=== PATIENT | female | born 1980 | race Caucasian/White ===

== ENCOUNTER 2017-02-08 21:00 | Emergency (ER) | payer BC ==
[2017-02-08] MEDS ORDERED: Albuterol/Ipratropium 3.0-0.5 MG/3 ML Neb Soln NEB ONE (21:16)
--- NOTE | 2017-02-08 21:19 | EDM.PDOC ---
ED HPI GENERAL MEDICAL PROBLEM - General Chief Complaint: Respiratory Problem Stated Complaint: COUGH/WEAKNESS/BACK/CHEST PAIN Time Seen by Provider: 02/08/17 21:10 - History of Present Illness INITIAL COMMENTS - FREE TEXT/NARRATIVE: HISTORY AND PHYSICAL: History of present illness: The patient is a 36-year-old female with no history of pulmonary issues and no smoking history who presents with a 2 day history of cough productive of phlegm and initially ache in the upper bronchioles but now she is having pain in her upper back bilaterally. She has not had any sore throat runny nose ear pain vomiting stomach pain or diarrhea. Patient says that the phlegm is junky but not bloody. Patient has been eating and drinking normally and has not had a fever with this. Patient says she was exposed to a child who was successfully diagnosed with pneumonia and she is concerned about that. 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 Past medical history: As per history of present illness and as reviewed below otherwise noncontributory. Surgical history: As per history of present illness and as reviewed below otherwise noncontributory. Social history: No reported history of drug or alcohol abuse. Family history: As per history of present illness and as reviewed below otherwise noncontributory. Physical exam: Gen.: Well-developed well-nourished overweight female who is speaking clearly and easily in the ED. Vital signs of an reviewed by me. HEENT: Atraumatic, normocephalic, pupils reactive, negative for conjunctival pallor or scleral icterus, mucous membranes moist, throat clear, neck supple, nontender, trachea midline. Cervical adenopathy or nuchal rigidity Lungs: Clear to auscultation, breath sounds equal bilaterally, chest nontender. No work of breathing stridor or wheezing Heart: S1S2, regular rate and rhythm no overt murmurs Abdomen: Soft, nondistended, nontender. NABS Negative for costovertebral tenderness. Pelvis: Deferred Genitourinary: Deferred. Rectal: Deferred. Extremities: Atraumatic, negative for cords or calf pain. Neurovascular unremarkable. No leg asymmetry Neuro: Awake, alert, oriented. Cranial nerves II through XII unremarkable. Cerebellum unremarkable. Motor and sensory unremarkable throughout. Exam nonfocal. Diagnostics: Influenza chest x-ray Therapeutics: Duo neb prednisone, spacer teaching Patient tells me that the ache in her upper back bilaterally is gone after the neb and she feels like she is moving the mucous better. Discussed with her using a spacer with an inhaler at home as well as prednisone for home. 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 Advised her to push hydration use Tylenol and Motrin or pain and fevers and to follow-up in the clinic Impression: Bronchitis Definitive disposition and diagnosis as appropriate pending reevaluation and review of above. 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 ED EXAM, GENERAL - Physical Exam Exam: See Below (See dictation) Course - Vital Signs Last Recorded V/S: Last Vital Signs Temp 36.6 C 02/08/17 21:12 Pulse 88 02/08/17 21:12 Resp 16 02/08/17 21:12 BP 140/89 02/08/17 21:12 Pulse Ox 99 02/08/17 21:12 - Orders/Labs/Meds Orders: Active Orders 24 hr Category Date Time Status Communication Order [RC] STAT Care 02/08/17 22:40 Ordered RT Aerosol Therapy [RC] ASDIRECTED Care 02/08/17 21:16 Active Chest 2V [CR] Stat Exams 02/08/17 21:16 Taken Meds: Medications Discontinued Medications Generic Name Dose Route Start Last Admin Trade Name Freq PRN Reason Stop Dose Admin Albuterol/Ipratropium 3 ml 02/08/17 21:16 02/08/17 21:25 Duoneb 3.0-0.5 Mg/3 Ml NEB 02/08/17 21:17 3 ml ONETIME ONE Administration Prednisone 20 mg 02/08/17 22:41 Prednisone PO 02/08/17 22:42 ONETIME ONE Departure - Departure Time of Disposition: 22:43 Disposition: Home, Self-Care 01 Condition: Good Clinical Impression: Bronchitis - Discharge Information Referrals: Marquez Polk MD [Primary Care Provider] - Forms: ED Department Discharge Additional Instructions: The following information is given to patients seen in the emergency department who are being discharged to home. This information is to outline your options for follow-up care. We provide all patients seen in our emergency department with a follow-up referral. The need for follow-up, as well as the timing and circumstances, are variable depending upon the specifics of your emergency department visit. If you don't have a primary care physician on staff, we will provide you with a referral. We always advise you to contact your personal physician following an emergency department visit to inform them of the circumstance of the visit and for follow-up with them and/or the need for any referrals to a consulting specialist. The emergency department will also refer you to a specialist when appropriate. This referral assures that you have the opportunity for followup care with a specialist. All of these measure are taken in an effort to provide you with optimal care, which includes your followup. Under all circumstances we always encourage you to contact your private physician who remains a resource for coordinating your care. When calling for followup care, please make the office aware that this follow-up is from your recent emergency room visit. If for any reason you are refused follow-up, please contact the [facility] emergency department at and ask to speak to the emergency department charge nurse. [facility] Primary care- Internal Medicine and Family [address] [address] Please call and schedule follow-up clinic appointment as we discussed for reevaluation and further care and return to ER as needed and as discussed. Take indications as prescribed and used her inhaler as indicated--every 6 hours for the next 2 days and then every 6 hours as needed. - My Orders Last 24 Hours: My Active Orders 02/08/17 21:16 RT Aerosol Therapy [RC] ASDIRECTED Chest 2V [CR] Stat 02/08/17 22:40 Communication Order [RC] STAT - Assessment/Plan Last 24 Hours: My Active Orders 02/08/17 21:16 RT Aerosol Therapy [RC] ASDIRECTED Chest 2V [CR] Stat 02/08/17 22:40 Communication Order [RC] STAT
[2017-02-08] MEDS ORDERED: predniSONE 20 MG Tab PO ONE (22:41)
[2017-02-08 22:52] VITALS: BP 112/71
--- NOTE | 2017-02-09 10:00 | CR ---
EXAM DATE: 02/08/17 PATIENT'S AGE: 36 Patient: YVETTE THOMPSON Facility: [place], [place] Site . Site : 1980 Study: XRay Chest [id number]/12/2017 9:58:29 PM Ordering Physician: Kentrell Warner Final Report: INDICATION: cough, weakness, chest pain TECHNIQUE: Chest radiograph 2 views COMPARISON: 03/10/09 FINDINGS: Cardiovascular and mediastinum: The cardiac silhouette is normal in appearance and size. Mediastinum is within normal limits. Lungs and pleural spaces: Both lungs are unremarkable in appearance. No sign of pleural effusion. No pneumothorax is seen. Bones and soft tissues: No significant findings. IMPRESSION: 1. No acute cardiopulmonary disease seen. Dictated by: Cristóbal Saunders MD @ 02/08/2017 22:35:51 (Electronic Signature) Report Signed by Proxy. [facility]
== END 2017-02-08 23:06 | disposition home or self-care (01) ==
LOC: MW.ED 21:00
DX: J40 Bronchitis, not specified as acute or chronic (principal); E03.9 Hypothyroidism, unspecified
CPT/HCPCS: 71020; 87804; 94640; 99284; A9270; 99283

== ENCOUNTER 2018-08-07 21:30 | Emergency (ER) | payer BC ==
--- NOTE | 2018-08-07 21:43 | EDM.PDOC ---
ED HPI GENERAL MEDICAL PROBLEM - General Chief Complaint: Lower Extremity Injury/Pain Stated Complaint: SWOLLEN ANKLE Time Seen by Provider: 08/07/18 21:32 Source of Information: Reports: Patient History Limitations: Reports: No Limitations - History of Present Illness INITIAL COMMENTS - FREE TEXT/NARRATIVE: HISTORY AND PHYSICAL: History of present illness: Patient denies fever, chills, chest pain, shortness of breath, or cough. Denies headache, neck stiff ness, change in vision, syncope, or near syncope. Denies nausea, vomiting, abdominal pain, diarrhea, constipation, or dysuria. Has not noted any blood in urine or stool. Patient has been eating and drinking appropriately. Review of systems: As per history of present illness and below otherwise all systems reviewed and negative. Past medical history: As per history of present illness and as reviewed below otherwise noncontributory. Surgical history: As per history of present illness and as reviewed below otherwise noncontributory. Social history: See social history for further information Family history: As per history of present illness and as reviewed below otherwise noncontributory. Physical exam: General: Patient is alert, oriented, and in no acute distress. Patient sitting comfortably on exam table. HEENT: Atraumatic, normocephalic, pupils equal and reactive bilaterally, negative for conjunctival pallor or scleral icterus, mucous membranes moist, TMs normal bilaterally, throat clear, neck supple, nontender, trachea midline. No drooling or trismus noted. No meningeal signs. No hot potato voice noted. Lungs: Clear to auscultation, breath sounds equal bilaterally, chest nontender. Heart: S1S2, regular rate and rhythm without overt murmur Abdomen: Soft, nondistended, nontender. Negative for masses or hepatosplenomegaly. Negative for costovertebral tenderness. Pelvis: Stable nontender. Genitourinary: Deferred. Rectal: Deferred. Skin: Intact, warm, dry. No lesions or rashes noted. Extremities: Atraumatic, negative for cords or calf pain. Neurovascular unremarkable. Neuro: Awake, alert, oriented. Cranial nerves II through XII unremarkable. Cerebellum unremarkable. Motor and sensory unremarkable throughout. Exam nonfocal. Notes: Supportive care measures were reviewed and discussed. Voices understanding and is agreeable to plan of care. Denies any further questions or concerns at this time. Diagnostics: Therapeutics: Prescription: Impression: Plan: Definitive disposition and diagnosis as appropriate pending reevaluation and review of above. 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, Musculoskeletal History: Reports: Fracture Neurological History: Reports: None Psychiatric History: Reports: None Endocrine/Metabolic History: Reports: Hypothyroidism Hematologic History: Reports: None Immunologic History: Reports: None Oncologic (Cancer) History: Reports: None Dermatologic History: Reports: None - Infectious Disease History Infectious Disease History: Reports: Chicken Pox - Past Surgical History Head Surgeries/Procedures: Reports: None HEENT Surgical History: Reports: Oral Surgery Cardiovascular Surgical History: Reports: None Respiratory Surgical History: Reports: None GI Surgical History: Reports: None Female Surgical History: Reports: None Endocrine Surgical History: Reports: None Neurological Surgical History: Reports: None Musculoskeletal Surgical History: Reports: None Oncologic Surgical History: Reports: None Dermatological Surgical History: Reports: None Social & Family History - Family History Family Medical History: Noncontributory - Caffeine Use Caffeine Use: Reports: Coffee Departure - Discharge Information
--- NOTE | 2018-08-07 22:02 | EDM.PDOC ---
<Roberta Justin - Last Filed: 08/07/18 21:57> ED HPI GENERAL MEDICAL PROBLEM - General Chief Complaint: Lower Extremity Injury/Pain Stated Complaint: SWOLLEN ANKLE Time Seen by Provider: 08/07/18 21:32 Source of Information: Reports: Patient History Limitations: Reports: No Limitations - History of Present Illness INITIAL COMMENTS - FREE TEXT/NARRATIVE: HISTORY AND PHYSICAL: History of present illness: Patient is a 37-year-old female who presents to the ED today with concern of right ankle pain 1 day. Patient states that she had taken her dog for a walk around the park. Patient states that last night, a, hour or so after the walk, she had taken her shoes off and noticed her right ankle was swollen. Patient states that since then has been a little bit more painful to use that foot. Patient denies any prior injury to the area. Patient denies any direct injury to the area. Patient denies fever, chills, chest pain, shortness of breath, or cough. Denies headache, neck stiff ness, change in vision, syncope, or near syncope. Denies nausea, vomiting, abdominal pain, diarrhea, constipation, or dysuria. Has not noted any blood in urine or stool. Patient has been eating and drinking appropriately. Patient denies any health history. Review of systems: As per history of present illness and below otherwise all systems reviewed and negative. Past medical history: As per history of present illness and as reviewed below otherwise noncontributory. Surgical history: As per history of present illness and as reviewed below otherwise noncontributory. Social history: See social history for further information Family history: As per history of present illness and as reviewed below otherwise noncontributory. Physical exam: General: Patient is alert, oriented, and in no acute distress. Patient sitting comfortably on exam table. HEENT: Atraumatic, normocephalic, pupils equal and reactive bilaterally, negative for conjunctival pallor or scleral icterus, mucous membranes moist, TMs normal bilaterally, throat clear, neck supple, nontender, trachea midline. No drooling or trismus noted. No meningeal signs. No hot potato voice noted. Lungs: Clear to auscultation, breath sounds equal bilaterally, chest nontender. Heart: S1S2, regular rate and rhythm without overt murmur Abdomen: Soft, nondistended, nontender. Negative for masses or hepatosplenomegaly. Negative for costovertebral tenderness. Pelvis: Stable nontender. Genitourinary: Deferred. Rectal: Deferred. Skin: Intact, warm, dry. No lesions or rashes noted. Extremities: There is some mild swelling around the right lateral malleolus of the ankle. Patient does have some mild pain with range of motion of the right ankle, however, full range of motion and strength intact. Dorsalis pedis and posterior tibial pulses intact via doppler. Otherwise, negative for cords or calf pain. Neurovascular unremarkable. Neuro: Awake, alert, oriented. Cranial nerves II through XII unremarkable. Cerebellum unremarkable. Motor and sensory unremarkable throughout. Exam nonfocal. Notes: On exam, patient does have some swelling around the lateral malleolus. Will do imaging today. Dr. Pfeiffer has assumed care of patient and will follow all remaining diagnostics and disposition. Diagnostics: Right ankle XR Therapeutics: Prescription: Impression: Right ankle sprain Plan: 1. Rest, ice, elevate the affected extremity. You can apply ice 15 minutes on, 15 minutes off. 2. Tylenol and/or Ibuprofen as directed for pain management or discomfort. 3. Follow up with the Orthopedic provider or primary care provider as discussed. Return to the ED as needed and as discussed. Definitive disposition and diagnosis as appropriate pending reevaluation and review of above. 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, Musculoskeletal History: Reports: Fracture Neurological History: Reports: None Psychiatric History: Reports: None Endocrine/Metabolic History: Reports: Hypothyroidism Hematologic History: Reports: None Immunologic History: Reports: None Oncologic (Cancer) History: Reports: None Dermatologic History: Reports: None - Infectious Disease History Infectious Disease History: Reports: Chicken Pox - Past Surgical History Head Surgeries/Procedures: Reports: None HEENT Surgical History: Reports: Oral Surgery Cardiovascular Surgical History: Reports: None Respiratory Surgical History: Reports: None GI Surgical History: Reports: None Female Surgical History: Reports: None Endocrine Surgical History: Reports: None Neurological Surgical History: Reports: None Musculoskeletal Surgical History: Reports: None Oncologic Surgical History: Reports: None Dermatological Surgical History: Reports: None Social & Family History - Family History Family Medical History: Noncontributory - Tobacco Use Smoking Status *Q: Never Smoker - Caffeine Use Caffeine Use: Reports: Coffee, Soda - Recreational Drug Use Recreational Drug Use: No Review of Systems - Review of Systems Review Of Systems: ROS reveals no pertinent complaints other than HPI. ED EXAM, GENERAL - Physical Exam Exam: See Below (See dictation) Course - Vital Signs Last Recorded V/S: Last Vital Signs Temp 36.4 C 08/07/18 21:41 Pulse 94 08/07/18 21:41 Resp 18 08/07/18 21:41 BP 120/78 08/07/18 21:41 Pulse Ox 99 08/07/18 21:41 - Orders/Labs/Meds Orders: Active Orders 24 hr Category Date Time Status DME for Discharge [COMM] Stat Oth 08/07/18 22:53 Ordered Departure - Departure Disposition: Home, Self-Care 01 Clinical Impression: Right ankle sprain Qualifiers: Encounter type: initial encounter Involved ligament of ankle: unspecified ligament Qualified Code(s): S93.401A - Sprain of unspecified ligament of right ankle, initial encounter - Discharge Information Referrals: PCP,None [Primary Care Provider] - Forms: ED Department Discharge Additional Instructions: The following information is given to patients seen in the emergency department who are being discharged to home. This information is to outline your options for follow-up care. We provide all patients seen in our emergency department with a follow-up referral. The need for follow-up, as well as the timing and circumstances, are variable depending upon the specifics of your emergency department visit. If you don't have a primary care physician on staff, we will provide you with a referral. We always advise you to contact your personal physician following an emergency department visit to inform them of the circumstance of the visit and for follow-up with them and/or the need for any referrals to a consulting specialist. The emergency department will also refer you to a specialist when appropriate. This referral assures that you have the opportunity for follow-up care with a specialist. All of these measure are taken in an effort to provide you with optimal care, which includes your follow-up. Under all circumstances we always encourage you to contact your private physician who remains a resource for coordinating your care. When calling for follow-up care, please make the office aware that this follow-up is from your recent emergency room visit. If for any reason you are refused follow-up, please contact the [facility] Emergency Department at and asked to speak to the emergency department charge nurse. [facility] [address] [place] [address] [id number] [address] [facility]--Orthopedic clinic Professional [address] [address] 1. Rest, ice, elevate the affected extremity. You can apply ice 15 minutes on, 15 minutes off. Use crutches to avoid weightbearing until you're followed up with the orthopedics clinic 2. Tylenol and/or Ibuprofen as directed for pain management or discomfort. 3. Follow up with the Orthopedic provider or primary care provider as discussed. Return to the ED as needed and as discussed. - My Orders Last 24 Hours: My Active Orders 08/07/18 22:53 DME for Discharge [COMM] Stat - Assessment/Plan Last 24 Hours: My Active Orders 08/07/18 22:53 DME for Discharge [COMM] Stat <Alana Pfeiffer - Last Filed: 08/07/18 22:55> ED HPI GENERAL MEDICAL PROBLEM - History of Present Illness INITIAL COMMENTS - FREE TEXT/NARRATIVE: Please add to therapeutics above Aircast and crutches Departure - Departure Time of Disposition: 22:54 Condition: Good
--- NOTE | 2018-08-07 22:46 | CR ---
Indication: Right ankle swelling Technique: Right ankle 3 views Comparison: None Findings: Bones: Alignment is normal. No fractures or bone lesions. Joint spaces: Joint spaces are well maintained. No degenerative changes. Soft tissues: Lateral soft tissue swelling. Impression: Lateral soft tissue swelling without evidence of fracture or dislocation. Dictated by Itz Perdomo MD @ Aug 07 2018 10:44PM Signed by Dr. Itz Perdomo @ Aug 07 2018 10:45PM
[2018-08-08 01:16] VITALS: BP 124/72
== END 2018-08-07 23:01 | disposition home or self-care (01) ==
LOC: MW.ED 21:30
DX: S93.401A Sprain of unspecified ligament of right ankle, initial encounter (principal); E03.9 Hypothyroidism, unspecified; Z79.899 Other long term (current) drug therapy; X58.XXXA Exposure to other specified factors, initial encounter; Y92.830 Public park as the place of occurrence of the external cause
CPT/HCPCS: 73610-26-RT; 73610-RT; 99283; 99283-25

== ENCOUNTER 2019-04-19 16:52 | Emergency (ER) | payer BC ==
--- NOTE | 2019-04-19 18:21 | EDM.PDOC ---
ED HPI GENERAL MEDICAL PROBLEM - General Chief Complaint: ENT Problem Stated Complaint: SOAR THROAT Time Seen by Provider: 04/19/19 18:00 Source of Information: Reports: Patient - History of Present Illness INITIAL COMMENTS - FREE TEXT/NARRATIVE: This 38 year old female is admitted to the ED with a chief complaint of sore throat since yesterday. She states that her daughter had a strep screen done about a week ago which was reported to neg but the following day her tonsils was red and full of exudate. 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 Duration: Day(s): (two days.) Location: Reports: Other (throat.) Severity: Moderate Improves with: Reports: None Worsens with: Reports: Other (eating.) Associated Symptoms: Reports: No Other Symptoms. 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 History: Reports: Polycystic Ovaries, Musculoskeletal History: Reports: Fracture Neurological History: Reports: None Psychiatric History: Reports: None Endocrine/Metabolic History: Reports: Hypothyroidism Hematologic History: Reports: None Immunologic History: Reports: None Oncologic (Cancer) History: Reports: None Dermatologic History: Reports: None - Infectious Disease History Infectious Disease History: Reports: Chicken Pox - Past Surgical History Head Surgeries/Procedures: Reports: None HEENT Surgical History: Reports: Oral Surgery Cardiovascular Surgical History: Reports: None Respiratory Surgical History: Reports: None GI Surgical History: Reports: None Female Surgical History: Reports: None Endocrine Surgical History: Reports: None Neurological Surgical History: Reports: None Musculoskeletal Surgical History: Reports: None Oncologic Surgical History: Reports: None Dermatological Surgical History: Reports: None Social & Family History - Family History Family Medical History: Noncontributory - Tobacco Use Smoking Status *Q: Never Smoker - Caffeine Use Caffeine Use: Reports: Coffee - Recreational Drug Use Recreational Drug Use: No ED ROS ENT - Review of Systems Review Of Systems: See Below Constitutional: Reports: No Symptoms HEENT: Reports: Throat Pain (For two days.) Respiratory: Reports: No Symptoms Cardiovascular: Reports: No Symptoms Endocrine: Reports: No Symptoms GI/Abdominal: Reports: No Symptoms : Reports: No Symptoms Musculoskeletal: Reports: No Symptoms Skin: Reports: No Symptoms Neurological: Reports: No Symptoms Psychiatric: Reports: No Symptoms Hematologic/Lymphatic: Reports: No Symptoms Immunologic: Reports: No Symptoms ED EXAM, ENT - Physical Exam Exam: See Below Text/Narrative:: This 38 year old female is admitted to the ED with a chief complaint of sore throat since yesterday. She states that her daughter had a strep screen done about a week ago which was reported to neg but the following day her tonsils was red and full of exudate. 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 Exam Limited By: No Limitations General Appearance: Alert, WD/WN, No Apparent Distress Eye Exam: Bilateral Eye: Normal Fundi, Normal Inspection, PERRL Ears: Normal External Exam, Normal Canal, Hearing Grossly Normal Nose: Normal Inspection, Normal Mucousa, No Blood Mouth/Throat: Pharyngeal Erythema, Throat Pain, Tonsillar Erythema (both tonsils are very red with early exudate.), Tonsillar Swelling Head: Atraumatic, Normocephalic Neck: Normal Inspection, Supple, Non-Tender, Full Range of Motion Respiratory/Chest: No Respiratory Distress, Lungs Clear, Normal Breath Sounds, No Accessory Muscle Use, Chest Non-Tender Cardiovascular: Normal Peripheral Pulses, Regular Rate, Rhythm, No Edema, No Gallop, No JVD, No Murmur, No Rub GI/Abdominal: Normal Bowel Sounds, Soft, Non-Tender, No Organomegaly, No Distention, No Abnormal Bruit, No Mass Extremities: Normal Inspection, Normal Range of Motion, Non-Tender, No Pedal Edema, Normal Capillary Refill Neurological: Alert, Oriented, CN II-XII Intact, Normal Cognition, Normal Gait, Normal Reflexes, No Motor/Sensory Deficits Psychiatric: Normal Affect, Normal Mood Skin: Warm, Dry, Intact, Normal Color, No Rash Lymphatic: No Adenopathy Course - Vital Signs Last Recorded V/S: Last Vital Signs Temp 98.4 F 04/19/19 17:10 Pulse 92 04/19/19 17:10 Resp 16 04/19/19 17:10 BP 133/83 04/19/19 17:10 Pulse Ox 97 04/19/19 17:10 - Orders/Labs/Meds Orders: Active Orders 24 hr Category Date Time Status CULTURE STREP A CONFIRMATION [RM] Stat Lab 04/19/19 17:06 Results STREP SCRN A RAPID W CULT CONF [RM] Stat Lab 04/19/19 17:06 Results Departure - Departure Time of Disposition: 18:36 Disposition: Home, Self-Care 01 Condition: Good Clinical Impression: Pharyngitis Qualifiers: Pharyngitis/tonsillitis etiology: unspecified etiology Qualified Code(s): J02.9 - Acute pharyngitis, unspecified - Discharge Information *PRESCRIPTION DRUG MONITORING PROGRAM REVIEWED*: Yes *COPY OF PRESCRIPTION DRUG MONITORING REPORT IN PATIENT JASBIR: Yes Instructions: Pharyngitis, [id number], Strep Throat, [id number] Referrals: PCP,None [Primary Care Provider] - Sepsis Event Note - Evaluation Sepsis Screening Result: No Definite Risk - Focused Exam Vital Signs: Vital Signs Temp Pulse Resp BP Pulse Ox 04/19/19 17:10 98.4 F 92 16 133/83 97 Date Exam was Performed: 04/19/19 Time Exam was Performed: 18:10 - My Orders Last 24 Hours: My Active Orders 04/19/19 17:06 CULTURE STREP A CONFIRMATION [RM] Stat STREP SCRN A RAPID W CULT CONF [RM] Stat - Assessment/Plan Last 24 Hours: My Active Orders 04/19/19 17:06 CULTURE STREP A CONFIRMATION [RM] Stat STREP SCRN A RAPID W CULT CONF [RM] Stat
[2019-04-19] MEDS ORDERED: Cephalexin 500 MG Cap PO ONE (18:33)
[2019-04-19 18:41] VITALS: BP 138/86; PULSE 90
== END 2019-04-19 18:47 | disposition home or self-care (01) ==
LOC: MW.ED 16:52
DX: J02.9 Acute pharyngitis, unspecified (principal)
CPT/HCPCS: 87081; 87880; 99283; A9270

== ENCOUNTER 2019-04-21 17:41 | Emergency (ER) | payer BC ==
--- NOTE | 2019-04-21 18:21 | EDM.PDOC ---
ED HPI GENERAL MEDICAL PROBLEM - General Chief Complaint: ENT Problem Stated Complaint: EAR PAIN Time Seen by Provider: 04/21/19 17:49 Source of Information: Reports: Patient History Limitations: Reports: No Limitations - History of Present Illness INITIAL COMMENTS - FREE TEXT/NARRATIVE: HISTORY AND PHYSICAL: History of present illness: Patient is a 38-year-old female who presents to the ED today with concern of right ear pain over the past 1 day. Patient states she was seen in the ED 2 days ago and was given antibiotic for tonsillitis. Patient states at that time her strep was negative. Patient states she began having right ear discomfort last night and today. Patient states she feels as if the ear is "clogged" or like there is water stuck in her ear. Patient denies any trauma or injury or any other symptoms or concerns. Patient denies fever, chills, chest pain, shortness of breath, or cough. Denies headache, neck stiff ness, change in vision, syncope, or near syncope. Denies nausea, vomiting, abdominal pain, diarrhea, constipation, or dysuria. Has not noted any blood in urine or stool. Patient has been eating and drinking appropriately. Review of systems: As per history of present illness and below otherwise all systems reviewed and negative. Past medical history: As per history of present illness and as reviewed below otherwise noncontributory. Surgical history: As per history of present illness and as reviewed below otherwise noncontributory. Social history: See social history for further information Family history: As per history of present illness and as reviewed below otherwise noncontributory. Physical exam: General: Patient is alert, oriented, and in no acute distress. Patient sitting comfortably on exam table. HEENT: Atraumatic, normocephalic, pupils equal and reactive bilaterally, negative for conjunctival pallor or scleral icterus, mucous membranes moist, left TM is normal, unable to visualize the right TM due to cerumen impaction, throat clear, neck supple, nontender, trachea midline. No drooling or trismus noted. No meningeal signs. No hot potato voice noted. Lungs: Clear to auscultation, breath sounds equal bilaterally, chest nontender. Heart: S1S2, regular rate and rhythm without overt murmur Abdomen: Soft, nondistended, nontender. Negative for masses or hepatosplenomegaly. Negative for costovertebral tenderness. Pelvis: Stable nontender. Genitourinary: Deferred. Rectal: Deferred. Skin: Intact, warm, dry. No lesions or rashes noted. Extremities: Atraumatic, negative for cords or calf pain. Neurovascular unremarkable. Neuro: Awake, alert, oriented. Cranial nerves II through XII unremarkable. Cerebellum unremarkable. Motor and sensory unremarkable throughout. Exam nonfocal. Notes: I was still unable to see the tympanic membrane after irrigation. Did offer to continue irrigation but patient declines at this time. Patient is currently on antibiotics for tonsillitis and instructed patient to keep taking these. Discussed importance for follow-up with primary care provider. Voices understanding and is agreeable to plan of care. Denies any further questions or concerns at this time. Diagnostics: None Therapeutics: Irrigation of cerumen (done by nursing staff) Prescription: None Impression: Cerumen impaction, right Plan: 1. You can alternate ibuprofen and Tylenol as directed for pain and discomfort. Keep taking antibiotic rx priorly prescribed to you. 2. Follow-up with your primary care provider as discussed. Return to the ED as needed and as discussed. Definitive disposition and diagnosis as appropriate pending reevaluation and review of above. 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, Musculoskeletal History: Reports: Fracture Neurological History: Reports: None Psychiatric History: Reports: None Endocrine/Metabolic History: Reports: Hypothyroidism Hematologic History: Reports: None Immunologic History: Reports: None Oncologic (Cancer) History: Reports: None Dermatologic History: Reports: None - Infectious Disease History Infectious Disease History: Reports: None - Past Surgical History Head Surgeries/Procedures: Reports: None HEENT Surgical History: Reports: Oral Surgery Cardiovascular Surgical History: Reports: None Respiratory Surgical History: Reports: None GI Surgical History: Reports: None Female Surgical History: Reports: None Endocrine Surgical History: Reports: None Neurological Surgical History: Reports: None Musculoskeletal Surgical History: Reports: None Oncologic Surgical History: Reports: None Dermatological Surgical History: Reports: None Social & Family History - Family History Family Medical History: Noncontributory - Tobacco Use Smoking Status *Q: Never Smoker - Caffeine Use Caffeine Use: Reports: Coffee ED ROS GENERAL - Review of Systems Review Of Systems: Comprehensive ROS is negative, except as noted in HPI. ED EXAM, GENERAL - Physical Exam Exam: See Below (see dictation) Course - Vital Signs Last Recorded V/S: Last Vital Signs Temp 97.4 F 04/21/19 17:53 Pulse 89 04/21/19 17:53 Resp 18 04/21/19 17:53 BP 141/80 H 04/21/19 17:53 Pulse Ox 97 04/21/19 17:53 Departure - Departure Time of Disposition: 18:29 Disposition: Home, Self-Care 01 Clinical Impression: Impacted cerumen of right ear - Discharge Information Referrals: Marquez Polk MD [Primary Care Provider] - Forms: ED Department Discharge Additional Instructions: The following information is given to patients seen in the emergency department who are being discharged to home. This information is to outline your options for follow-up care. We provide all patients seen in our emergency department with a follow-up referral. The need for follow-up, as well as the timing and circumstances, are variable depending upon the specifics of your emergency department visit. If you don't have a primary care physician on staff, we will provide you with a referral. We always advise you to contact your personal physician following an emergency department visit to inform them of the circumstance of the visit and for follow-up with them and/or the need for any referrals to a consulting specialist. The emergency department will also refer you to a specialist when appropriate. This referral assures that you have the opportunity for follow-up care with a specialist. All of these measure are taken in an effort to provide you with optimal care, which includes your follow-up. Under all circumstances we always encourage you to contact your private physician who remains a resource for coordinating your care. When calling for follow-up care, please make the office aware that this follow-up is from your recent emergency room visit. If for any reason you are refused follow-up, please contact the [facility] Emergency Department at and asked to speak to the emergency department charge nurse. [facility] [address] [place] [address] [facility] [address] [place] [id number] 1. You can alternate ibuprofen and Tylenol as directed for pain and discomfort. Keep taking antibiotic rx priorly prescribed to you. 2. Follow-up with your primary care provider as discussed. Return to the ED as needed and as discussed. Sepsis Event Note - Evaluation Sepsis Screening Result: No Definite Risk - Focused Exam Vital Signs: Vital Signs Temp Pulse Resp BP Pulse Ox 04/21/19 17:53 97.4 F 89 18 141/80 H 97 Date Exam was Performed: 04/21/19 Time Exam was Performed: 18:29
== END 2019-04-21 18:43 | disposition home or self-care (01) ==
LOC: MW.ED 17:41
CPT/HCPCS: 69209; 99282; 99282-25

== ENCOUNTER 2019-04-22 08:52 | Emergency (ER) | payer BC ==
--- NOTE | 2019-04-22 09:28 | EDM.PDOC ---
ED HPI GENERAL MEDICAL PROBLEM - General Chief Complaint: ENT Problem Stated Complaint: spoke to nurse Time Seen by Provider: 04/22/19 09:23 Source of Information: Reports: Patient History Limitations: Reports: No Limitations - History of Present Illness INITIAL COMMENTS - FREE TEXT/NARRATIVE: Should is a 38-year-old female who is currently on Keflex for exposure to strep. She was seen by her PCP and had a negative strep test but he started her on the above antibiotic. She is complaining of having right-sided ear pain which started yesterday and was seen her last night for the same and felt to have cerumen impaction. Patient denies any fever or chills or any discharge from her ear or change in hearing currently. Patient states her symptoms are worse when she eats. She has never had similar symptoms in the past has not taken anything for current pain. Onset Date: 04/21/19 Location: Reports: Face Quality: Reports: Ache, Dull Severity: Moderate Improves with: Reports: None Worsens with: Reports: Eating Associated Symptoms: Reports: No Other Symptoms - Related Data Allergies Allergy/AdvReac Type Severity Reaction Status Date / Time No Known Allergies Allergy Verified 04/22/19 09:06 Home Meds: Home Meds Levothyroxine 100 mcg PO QAM 07/24/14 [History] Cephalexin [Keflex] 500 mg PO BID 7 Days #14 capsule 04/19/19 [Rx] Cyclobenzaprine [Flexeril] 5 mg PO BID PRN #15 tab 04/22/19 [Rx] Past Medical History HEENT History: Reports: None Cardiovascular History: Reports: None Respiratory History: Reports: None Gastrointestinal History: Reports: None Genitourinary History: Reports: None 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, Musculoskeletal History: Reports: Fracture Neurological History: Reports: None Psychiatric History: Reports: None Endocrine/Metabolic History: Reports: Hypothyroidism Hematologic History: Reports: None Immunologic History: Reports: None Oncologic (Cancer) History: Reports: None Dermatologic History: Reports: None - Infectious Disease History Infectious Disease History: Reports: None - Past Surgical History Head Surgeries/Procedures: Reports: None HEENT Surgical History: Reports: Oral Surgery Cardiovascular Surgical History: Reports: None Respiratory Surgical History: Reports: None GI Surgical History: Reports: None Female Surgical History: Reports: None Endocrine Surgical History: Reports: None Neurological Surgical History: Reports: None Musculoskeletal Surgical History: Reports: None Oncologic Surgical History: Reports: None Dermatological Surgical History: Reports: None Social & Family History - Family History Family Medical History: Noncontributory - Tobacco Use Smoking Status *Q: Never Smoker - Caffeine Use Caffeine Use: Reports: Coffee - Recreational Drug Use Recreational Drug Use: No ED ROS ENT - Review of Systems Review Of Systems: See Below Constitutional: Reports: No Symptoms. Denies: Fever, Chills, Malaise HEENT: Reports: Ear Pain, Throat Pain. Denies: Ear Discharge, Eye Discharge, Eye Pain, Hearing Loss Respiratory: Reports: No Symptoms Cardiovascular: Reports: No Symptoms GI/Abdominal: Reports: No Symptoms : Reports: No Symptoms Musculoskeletal: Reports: No Symptoms Skin: Reports: No Symptoms ED EXAM, ENT - Physical Exam Exam: See Below Exam Limited By: No Limitations General Appearance: Alert, No Apparent Distress Ears: Normal External Exam, Hearing Grossly Normal, TM Dullness, TM Erythema. No: Auricular Tenderness, Mastoid Swelling, Mastoid Tenderness, Canal Discharge Mouth/Throat: Normal Teeth, Pharyngeal Erythema, Throat Swelling, Tonsillar Swelling. No: Dental Tenderness Head: Atraumatic Neck: Supple, Non-Tender. No: Lymphadenopathy (L) Respiratory/Chest: No Respiratory Distress Neurological: Alert, Oriented Psychiatric: Normal Affect Skin: Warm Lymphatic: No Adenopathy Course - Vital Signs Last Recorded V/S: Last Vital Signs Temp 36.2 C 04/22/19 08:59 Pulse 94 04/22/19 08:59 Resp 18 04/22/19 08:59 BP 123/73 04/22/19 08:59 Pulse Ox 97 04/22/19 08:59 Departure - Departure Time of Disposition: 09:28 Disposition: Home, Self-Care 01 Condition: Good Clinical Impression: TMJ (temporomandibular joint syndrome) - Discharge Information Referrals: PCP,None [Primary Care Provider] - Additional Instructions: Soft diet while having symptoms. Follow-up with your dentist for mouthguard. Aleve or ibuprofen as needed. Flexeril as prescribed as needed. To ER if worse. Follow-up with PCP if symptoms continue. Sepsis Event Note - Evaluation Sepsis Screening Result: No Definite Risk - Focused Exam Vital Signs: Vital Signs Temp Pulse Resp BP Pulse Ox 04/22/19 08:59 36.2 C 94 18 123/73 97 Date Exam was Performed: 04/22/19 Time Exam was Performed: 09:23
[2019-04-22 09:50] VITALS: BP 125/68; PULSE 71
== END 2019-04-22 09:50 | disposition home or self-care (01) ==
LOC: MW.ED 08:52
DX: M26.601 Right temporomandibular joint disorder, unspecified (principal); E03.9 Hypothyroidism, unspecified; Z79.890 Hormone replacement therapy
CPT/HCPCS: 99282